=== PATIENT | male | born 1990 | race Caucasian/White ===

== ENCOUNTER → 2020-10-28 02:52 | Outpatient (CLI) | payer OTHER, SELFPAY ==
[2020-10-28 20:12] LABS: SARS-CoV-2 RNA PCR Negative
== END ==
PROVIDERS: Visit Provider Otolaryngology
DX: Z01.812 Encounter for preprocedural laboratory examination (principal); Z20.822 Contact with and (suspected) exposure to COVID-19
CPT/HCPCS: C9803; U0003; U0005

== ENCOUNTER 2020-10-31 02:35 | Day surgery (SDC) | payer OTHER, SELFPAY ==
[2020-10-26 10:11] VITALS: BMI 27.2
--- NOTE | 2020-10-28 07:52 | PM.IMHP ---
H&P: HPI History of Present Illness Date/Time: 10/28/20 07:52 patient presents for planned surgical procedures. Reports no new symptoms or changes in medical history. Chief Complaint: Nasal polyp septal deviation inferior turbinate hypertrophy nasal obstruction nasal congestion chronic sinusitis Review of Systems Constitutional: Constitutional: Denies fatigue, Denies fever(s) and Denies lethargy Eyes: Eyes: Denies blurry vision and Denies change in vision ENT: Reports as per HPI Cardiovascular: Cardiovascular: Denies chest pain Respiratory: Respiratory: Denies cough Endocrine: Endocrine: Denies fatigue Hematologic/Lymphatic: Hematologic/Lymphatic: Denies easy bleeding, Denies easy bruising and Denies lymphadenopathy Allergic/Immunologic: Allergic/Immunologic: Denies seasonal rhinorrhea [facility] Social History Social History Smoking status: Never smoker Alcohol intake: current Substance use: never Substance use type: does not use Spiritual care concerns: No Meds Home Medications and Allergies Home Medications Medication Instructions Recorded Confirmed Type budesonide 0.25 mg IRRIGATION BID 10/26/20 10/26/20 History Allergies Allergy/AdvReac Type Severity Reaction Status Date / Time No Known Allergies Allergy Verified 10/26/20 09:57 Exam Const: General: cooperative, healthy appearing, comfortable, well developed and alert HENMT: Head: normal to inspection, normocephalic and atraumatic Ears: hearing grossly normal bilaterally, external ears normal, TM's normal bilaterally and EAC's normal General nose exam: Normal external nose present, Normal nares present and Other nasal findings present ( Septal deviation inferior turbinate hypertrophy nasal polyposis) Face and sinus: normal facial exam Mouth: Yes Normal oral and palatal mucosa present, Yes lip normal, Yes tongue normal, Yes oropharynx normal and Yes moist mucous membranes Teeth and gingiva: dentition normal and gingiva normal Throat: posterior oropharynx normal, tonsils normal and uvula midline Eyes: General: appearance normal, both eyes and all related structures Periorbital: periorbital findings normal Eyelids: eyelids normal Conjunctivae: conjunctivae normal Sclera: sclerae normal Neck: Neck: normal visual inspection, full ROM and no lymphadenopathy Thyroid: thyroid normal Lymphatic: no lymphadenopathy noted Resp: Effort & Inspection: normal respiratory effort and able to speak in complete sentences Cardio: Jugular venous distension: no JVD Neuro: Cranial nerves: Yes CN's II-XII intact bilaterally Assessment and Plan Assessment and plan (1) Nasal obstruction: Code(s): J34.89 - Other specified disorders of nose and nasal sinuses Status: Acute Assessment and Plan: plan is for the operating room for bilateral image guided maxillary antrostomies total ethmoidectomies frontal sinusotomies sphenoidotomies endoscopic assisted septoplasty inferior turbinate reduction. Risks were discussed including bleeding infection brain damage CSF leak blindness damage to vision need for further procedures postoperative bleeding the for postoperative antibiotics. Patient voiced understanding of these risks and agreed. Total time 2.5 hours. (2) Hypertrophy of both inferior nasal turbinates: Code(s): J34.3 - Hypertrophy of nasal turbinates Status: Acute (3) Deviated nasal septum: Code(s): J34.2 - Deviated nasal septum Status: Acute (4) Nasal polyps: Code(s): J33.9 - Nasal polyp, unspecified Status: Acute (5) Chronic sinusitis: Code(s): J32.9 - Chronic sinusitis, unspecified Status: Acute
[2020-10-31] VITALS (9 sets, daily range): BP systolic 126–150; BP diastolic 79–96; PULSE 58–84; RESP 11–15; TEMP 36.1–36.2; O2SAT 98–100
--- NOTE | 2020-10-31 07:23 | WPDHPUPDATE1 ---
History and Physical Update Update Date/Time: 10/31/20 07:23 History and Physical has been reviewed, including an updated exam of the patient. There are NO changes in the patient's condition. Risks, benefits, and alternatives have been discussed and questions answered. Patient agrees to proceed with procedure.
[2020-10-31] MEDS: LACTATED RINGERS 1,000 ML 30 ML IV CONT ×2 (07:45→11:19)
[2020-10-31] MEDS: ACETAMINOPHEN 500 MG TABLET 1000 MG PO (07:48)
--- NOTE | 2020-10-31 07:58 | WPDANESEPPF ---
Anes - Initial Pre Proc Eval Procedure: Operation Date: 10/31/20 08:30 Proposed Procedures p Image Guided Bilateral Inferior Turbinectomy, Bilateral Maxillary Antrostomy, Anterior, Posterior Ethmoidectomy, Frontal Sinusotomy, Nasal Polypectomy, Sphenoidectomy - Estuardo Waite MD s Septoplasty - Estuardo Waite MD Date/Time: 10/31/20 07:58 Surgeon: Estuardo Waite MD Pre Op Diagnosis: chronic sinusitis Patient Data Age: 30 Gender: M Height: 1.8 m Weight: 88.7 kg Last Vital Signs Temp 36.2 C L 10/31/20 07:38 Pulse 64 10/31/20 07:38 Resp 12 10/31/20 07:38 BP 133/84 10/31/20 07:38 Pulse Ox 100 10/31/20 07:38 Allergies Allergy/AdvReac Type Severity Reaction Status Date / Time No Known Allergies Allergy Verified 10/26/20 09:57 Home Medications Medication Instructions Recorded Confirmed Type budesonide 0.25 mg IRRIGATION BID 10/26/20 10/26/20 History prednisone 20 mg tablet 20 mg PO DAILY #3 tablet 10/28/20 Rx Patient hx anesthesia problems: none Family hx anesthesia problems: none PMFSH Social History Social History Smoking status: Never smoker Alcohol intake: current Substance use: never Substance use type: does not use Living arrangements: with family Spiritual care concerns: No Anes - Eval Final PreProcedure Day of Procedure 10/31/20 07:58 Patient weight: overweight Heart: regular rate and rhythm Lungs: clear to auscultation Airway: Mallampati scale class II Neurological: alert and oriented Last oral intake: >/= 8 hours ASA classification: II Emergent: no Anesthetic plan: proceed Anesthesia type and monitoring: general ETT and standard monitoring Informed Consent: The patient's anesthetic plan and its attendant risks and benefits were discussed with the patient/family/POA. Questions were solicited and answers provided to the satisfaction of the patient/family/POA.
[2020-10-31] MEDS: ceFAZolin 2 GM/D5W 50 ML 2 GM/50 ML BAG IVPB (08:57)
[2020-10-31] MEDS: OXYMETAZOLINE HCL 0.05% NAS 15 ML BTL (*BKC) 1 SPRAY NASAL (08:57)
--- NOTE | 2020-10-31 11:43 | W.PM.PROC2 ---
Procedure Note - Detailed Date of Procedure 10/31/20 Pre-op Diagnosis chronic sinusitis, nasal obstruction, septal deviation, inferior turbinate hypertrophy, nasal congestion, nasal polyps Post-op Diagnosis same Procedure Performed Image guided bilateral maxillary antrostomies total ethmoidectomies frontal sinusotomies sphenoidotomies All the codes with tissue removal as or significant polyp burden within the sinuses Endoscopic assisted septoplasty Inferior turbinate reduction with outfracture submucosally Right middle turbinectomy Surgeon Estuardo Waite MD Lamp Shade Sewer None Anesthesia general Indications See above Findings Polyps within all the aforementioned sinuses septal deviation to the right superiorly left inferiorly inferior turbinate hypertrophy Description of Procedure The patient was correctly identified consent was verified in the preoperative holding area. The patient was then brought to the operating room and a time-out performed. General anesthesia was induced and endotracheal tube was secured the patient's airway and taped to the left lower lip. The image guidance system was initiated. Patient was then prepped and draped for the aforementioned procedures. Second time-out performed. Afrin-soaked pledgets inserted and allowed to sit the nasal passages for 5 minutes. 0 degree endoscope utilizing under image guidance the polyps burden which was grade 4 located bilaterally was debrided using a micro debrider with straight blade. Microdebrider was also image guidance. Backbiter was utilized to perform the bilateral mac axillary antrostomy there was significant polyp burden and cyst within the bilateral maxillary sinuses. [place] as well as straight through cut and microdebrider were utilized to perform the total ethmoidectomies which were ensured to go to the upper outer skull base as well as orbit laterally. Sphenoids were located using image guidance and widened using a combination of Kerrison punches as well as sphenoid punches. The skull base was then worked from posterior to anterior fashion using image guidance to ensure all portions of the skull base were removed. There were some skull base diseased tissue left along the bilateral anterior ethmoidal arteries which were dehiscent excuse me not dehiscent but in a mesentery and did not run in the true skull base. The maxillary sinuses were ensured to connect to the natural os is bilaterally. The skull base and orbits were intact throughout the procedure. Next a 70 degree scope was utilized to view the frontal sinus outflow tracts again which had significant polyp burden the skull base or obstructions to the frontal sinuses removed using frontal sinus instruments including drafts and Cobra punches. The polyps were debrided using a 60 degree microdebrider curved blade. Significant care was taken to to not scar the outflow tract circumferentially. Of following the procedure both frontal outflow tracts were were open and both frontal sinuses were readily visible. Prior to the commencement of sinus surgery 10 cc of 1% lidocaine with 1 100,000 parts epinephrine was injected deep to the mucosa sub mucoperiosteal in the submucoperichondrial plane bilaterally in the nasal septum. A left-sided [place] incision was performed using a 15 blade. Obstructive septum was removed using a combination of osteotome Jose Eduardo Gomez forceps and endoscopic scissors. The septum was then closed anteriorly using 3 interrupted 5 0 fast gut sutures. The bilateral inferior turbinates were then entered in their anterior portion following the injection of a small amount of 1% lidocaine with 1 100,000 parts epinephrine. They were debrided in the submucosal plane. There were then outfracture using a [place] elevator. The nasal airway was much more patent following this procedure. The bilateral nasal passages were suctioned to the choana and hemostasis was again noted to be excellent. Gonzalez splints were then inser
[2020-10-31] MEDS: oxyCODONE HCL (*CRX) 5 MG TAB IR PO (12:35)
== END 2020-10-31 13:44 | disposition home or self-care (01) ==
PROVIDERS: Visit Provider Otolaryngology
PROC: (CPT 31267; principal; 2020-10-31 08:30)
PROC: (CPT 30520; 2020-10-31 08:30)
DX: J32.9 Chronic sinusitis, unspecified (principal); J34.2 Deviated nasal septum; J34.3 Hypertrophy of nasal turbinates; J34.89 Other specified disorders of nose and nasal sinuses; J33.8 Other polyp of sinus; G47.33 Obstructive sleep apnea (adult) (pediatric); E66.3 Overweight; Z68.27 Body mass index [BMI] 27.0-27.9, adult
CPT/HCPCS: 31267; 31257; 31253; 30140; 61782; 30520; A9270; C9803; J0330; J0690; J1100; J2250; J2405; J2704; J3010; J7120; U0003; U0005

== ENCOUNTER 2024-09-03 08:43 | Emergency (ER) | payer OTHER, SELFPAY ==
--- NOTE | 2024-09-03 08:55 | ED.SKABFB ---
HPI - Skin/Abscess/Foreign Bdy General Chief complaint: Skin/Abscess/Foreign Body Stated complaint: Poison [place] Time Seen by Provider: 09/03/24 08:55 Source: patient Mode of arrival: ambulatory Limitations: no limitations History of Present Illness HPI narrative: Patient is a 34 year old male who presents to the clinic for complaints of poison michaela to his bilateral arms since last night. 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 He thinks the wind blew the poison michaela back on him. He has not been taking anything over the counter. Denies any shortness of breath, nausea, vomiting, difficulty swallowing, or diarrhea. Related Data Allergies Allergy/AdvReac Type Severity Reaction Status Date / Time No Known Allergies Allergy Verified 09/03/24 08:58 Review of Systems Review of Systems: CONSTITUTIONAL: Denies body aches, fever, chills, or sweats. EYES: Denies visual changes, redness, or discharge. ENT: Denies rhinorrhea, congestion CARDIOVASCULAR: Denies chest pain, palpitations, or edema. RESPIRATORY: Denies cough or dyspnea. GASTROINTESTINAL: Denies abdominal pain, nausea, vomiting, or diarrhea. SKIN: ?Reports a rash to bilateral arms. MUSCULOSKELETAL: Denies back pain, joint pain, or myalgia. NEUROLOGIC: Denies headache, numbness, tingling, or weakness. All systems reviewed & are unremarkable except as noted in HPI and below PMFSH Social History Social History Smoking status: Never smoker Alcohol intake: current Substance use: never Substance use type: does not use Lack of Transportation: No Lack of Food: Never True Current Housing: I Have Housing Concerned About Future Housing: No Difficulty Paying Gas/Electric Bills: No Difficulty Paying for Meds: No Currently Unemployed: No Education: High School Diploma/GED Difficulty w/ Childcare or Family Care: No Living arrangements: with family Spiritual care concerns: No Comments At time of signature, I have reviewed and agree with nursing past medical, surgical, social and family history unless otherwise noted. Please see nursing chart for further information. There is no relevant family history pertinent to the presenting complaint. Exam Narrative: GENERAL: Well-appearing HEAD: Normocephalic, atraumatic. EYES: ?conjunctivae clear, and EOMI. ENT: Mucous membranes moist. Oropharynx without edema, erythema or lesions. NECK: Supple. No lymphadenopathy CHEST: Clear to auscultation. HEART: Regular rate and rhythm. SKIN: Warm, dry. ?Erythemic raised papules and itchy rash noted to bilateral arms. NEURO: ?Alert and oriented x3.? Course Course Level of Care: Express Care Visit Vital Signs Vital signs: Reviewed MDM - Skin/Abscess/Foreign Bdy MDM Narrative Medical decision making narrative: Discussed physical exam findings. Dexamethasone shot given in clinic. Prednisone and triamcinolone prescriptions given. Advised supportive measures and signs/symptoms to go to the ER. Pt is appropriate for outpatient treatment and follow up. Differential Diagnosis Differential diagnosis: Likely contact dermatitis and other (Poison michaela) Critical Care Time Critical Care Time Critical Care Time: No Discharge Plan Discharge Clinical Impression: Poison michaela Patient Disposition: Home Condition: Stable Instructions: Antibiotic Form, Poison Michaela (ED) Additional Instructions: Take steroids as prescribed starting in the morning. Prevention is always better than treatment. Learn to identify poison michaela, oak, and sumac and avoid it. Wear long sleeves, long pants, shoes, and socks. If you touched the plant, try to keep your hands away from your eyes, mouth, and face. Wash the skin thoroughly with soap and cool water as soon as possible. Scrub under the fingernails with a brush to prevent spreading of the resin to other parts of the body by touching or scratching. Remember to wash any clothing with soap and hot water as the resin can persist for many months and cause further dermatitis. You should NOT use antihistamine creams or lotions, anesthetic creams containing benzocaine, or antibiotic creams containing neomycin or bacitracin to the skin. These creams or ointments could make the rash worse. For some people, adding oatmeal to a bath, applying cool wet compresses, and applying calamine lotion may help to relieve itching. Once the blisters begin weeping fluid, astringents containing aluminum acetate (Burow's solution) and [place] may help to relieve the rash. IF symptoms get worse to follow up with your primary care provider or seek ER visit if you developing difficulty breathing, weakness, dizziness. Patient Language: Turkish Prescriptions: New prednisone 10 mg tablet See Rx Instructions .Route .COMPLEX Qty: 30 0RF Rx Instructions: 60mg PO daily on day 1, 40mg PO daily for days 2-4, 30 mg PO daily on days 5-6, 20mg PO daily on days 7-8, 10mg PO daily on days 9-10. triamcinolone acetonide 0.1 % cream 1 applic topical BID Qty: 30 0RF Follow-up/Referrals: PHYSICIAN,CHIEF OF PEDIATRIC UROLOGY [Primary Care Provider] - Stand Alone Forms: Work/School Release IP Time of Disposition: 09:04
[2024-09-03 08:58] VITALS: BP 139/93; PULSE 68; RESP 16; TEMP 36.6; O2SAT 100
[2024-09-03] MEDS: dexAMETHasone SOD PHOS INJ 10 MG/ML 1 ML VIAL IM (09:09)
== END 2024-09-03 09:20 | disposition home or self-care (01) ==
DX: L23.7 Allergic contact dermatitis due to plants, except food (principal)
CPT/HCPCS: 96372; 99213; G0463; J1100